=== PATIENT | male | born 2000 | race Hispanic/Latino ===

== ENCOUNTER 2024-07-25 13:12 | Inpatient (IN) | payer SELFPAY ==
[~2024-07-25] VITALS: Ht 172.7 cm; Wt 69.9 kg
[2024-07-25] VITALS (11 sets, daily range): BP systolic 91–114; BP diastolic 46–94; PULSE 62–93; RESP 16–20; TEMP 98.2; O2SAT 99–100
[2024-07-25 14:27] LABS: BASOPHILS % 0.4 % (0.0-1.0); EOSINOPHILS % 0.6 % (0.0-6.0); HEMATOCRIT 45.5 % (38.2-49.6); LYMPHOCYTES # (AUTO) 1.6 (1.0-3.2); LYMPHOCYTES % 30.5 % (18.0-39.1); MEAN CORPUSCULAR HEMOGLOBIN 30.5 pg (28-32); MEAN CORPUSCULAR HGB CONC 35.2 g/dL (31-35); MEAN CORPUSCULAR VOLUME 86.8 fL (81-99); MONOCYTES # (AUTO) 0.3 (0.2-0.8); MONOCYTES % 6.6 % (4.4-11.3); NEUTROPHILS # (AUTO) 3.2 (2.1-6.9); NEUTROPHILS % 60.9 % (38.7-80.0); PLATELET COUNT 167 x10e3/uL (140-360); RED BLOOD COUNT 5.24 x10e6/uL (4.3-5.7); RED CELL DISTRIBUTION WIDTH 13.1 % (11.7-14.4); WHITE BLOOD COUNT 5.18 x10e3/uL (4.8-10.8)
[2024-07-25] MEDS: SODIUM CHLORIDE 0.9% 1000ML 1,000 ML IV ONE ×2 (14:45)
[2024-07-25 14:56] LABS: ALBUMIN 3.9 g/dL (3.5-5.0); ALBUMIN/GLOBULIN RATIO 1.4 (0.8-2.0); ANION GAP 23.2 mmol/L (8-16); BILIRUBIN,TOTAL 0.3 mg/dL (0.2-1.2); CALCIUM 8.9 mg/dL (8.4-10.2); CREATININE, SERUM 1.13 mg/dL (0.72-1.25); POTASSIUM 4.2 mmol/L (3.5-5.1); TOTAL PROTEIN 6.6 g/dL (6.5-8.1)
[2024-07-25 16:45] LABS: CALCIUM 7.9 mg/dL (8.4-10.2); CREATININE, SERUM 1.02 mg/dL (0.72-1.25)
[2024-07-25] MEDS ORDERED: ONDANSETRON HCL INJ 2MG/ML 2ML 2 MG/ML VIAL IV PRN (17:00)
[2024-07-25] MEDS ORDERED: POTASSIUM CHLORIDE 20MEQ/100ML 200 ML IV PRN (17:00)
[2024-07-25] MEDS: SODIUM CHLORIDE 0.9% 1000ML 1,000 ML IV SCH (17:36)
[2024-07-25] MEDS: INSULIN REGULAR, HUMAN 3ML VL 100 UNIT in SODIUM CHLORIDE 0.9% 99 ML IV SCH (17:42)
[2024-07-25] MEDS: MUPIROCIN 2% OINT 22 GM TUBE TOP SCH (17:45)
[2024-07-25] MEDS: DEXTROSE 5%/0.45% SOD CHL 1,000 ML IV SCH (18:38)
[2024-07-25 22:08] LABS: ANION GAP 19.1 mmol/L (8-16); CALCIUM 7.6 mg/dL (8.4-10.2); CREATININE, SERUM 0.8 mg/dL (0.72-1.25); MAGNESIUM 1.6 MG/DL (1.3-2.1)
[2024-07-25 22:27] LABS: POTASSIUM 3.1 mmol/L (3.5-5.1)
[2024-07-25] MEDS ORDERED: MAGNESIUM/ALUMINUM/SIMETHICONE 30 ML UDC PO PRN (22:45)
[2024-07-25] MEDS ORDERED: DOCUSATE SODIUM 100 MG CAP PO PRN (22:45)
[2024-07-25] MEDS: MAGNESIUM SULF 1GRAM/DEXTROSE 100 ML IV PRN (22:45)
[2024-07-25] MEDS ORDERED: GUAIFENESIN/DEXTROMETHORPHAN LIQD 5 ML UDC PO PRN (22:45)
[2024-07-25] MEDS ORDERED: MELATONIN 3 MG TAB PO PRN (22:45)
[2024-07-25] MEDS ORDERED: HYDRALAZINE HCL 20 MG/ML VIAL IV PRN (22:45)
[2024-07-25] MEDS ORDERED: ACETAMINOPHEN 325 MG TAB PO PRN (22:45)
[2024-07-26] VITALS (26 sets, daily range): BP systolic 83–131; BP diastolic 41–113; PULSE 50–86; RESP 16–23; TEMP 98–98.9; O2SAT 99–100
[2024-07-26] MEDS: POTASSIUM CHLORIDE 20MEQ/100ML 100 ML IV PRN (00:43)
[2024-07-26 08:10] LABS: ANION GAP 14.9 mmol/L (8-16); CALCIUM 8.1 mg/dL (8.4-10.2); CREATININE, SERUM 0.73 mg/dL (0.72-1.25); MAGNESIUM 1.7 MG/DL (1.3-2.1)
[2024-07-26 08:21] LABS: POTASSIUM 2.9 mmol/L (3.5-5.1)
[2024-07-26 08:23] LABS: CHOL/HDL RATIO 6.5 (3.9-4.7)
[2024-07-26 08:43] LABS: THYROID STIMULATING HORMONE 0.595 uIU/mL (0.350-4.940)
[2024-07-26] MEDS ORDERED: DEXTROSE 50% SYRINGE 50 ML IV PRN ×2 (09:00→14:00)
[2024-07-26] MEDS: MULTIVITAMINS/MINERALS TAB PO SCH (09:29)
[2024-07-26] MEDS: MAGNESIUM SULF 1GRAM/DEXTROSE 100 ML IV PRN (09:30)
[2024-07-26] MEDS ORDERED: METOPROLOL TARTRATE INJ 1 MG/ML VIAL IV PRN (10:15)
[2024-07-26] MEDS ORDERED: ALBUTEROL/IPRATROPIUM 3 ML NEB NEB PRN (10:15)
[2024-07-26 13:39] LABS: ANION GAP 15.3 mmol/L (8-16); CALCIUM 8.7 mg/dL (8.4-10.2); CREATININE, SERUM 0.77 mg/dL (0.72-1.25); MAGNESIUM 1.6 MG/DL (1.3-2.1)
[2024-07-26 13:47] LABS: POTASSIUM 3.3 mmol/L (3.5-5.1)
[2024-07-26] MEDS ORDERED: INSULIN REGULAR, HUMAN 3ML VL 100 UNIT in SODIUM CHLORIDE 0.45% 100 ML 100 ML IV SCH (14:00)
[2024-07-26] MEDS ORDERED: INSULIN REGULAR, HUMAN 3ML VL 100 UNIT in SODIUM CHLORIDE 0.45% 100 ML 99 ML IV SCH (14:15)
[2024-07-26] MEDS: ENOXAPARIN SOD INJ 40 MG/0.4 ML SYR SC SCH (17:00)
[2024-07-26 18:24] LABS: BASOPHILS % 0.3 % (0.0-1.0); EOSINOPHILS % 0.5 % (0.0-6.0); HEMATOCRIT 40.9 % (38.2-49.6); HEMOGLOBIN 14.5 g/dL (14.0-18.0); LYMPHOCYTES # (AUTO) 2.5 (1.0-3.2); LYMPHOCYTES % 42.8 % (18.0-39.1); MEAN CORPUSCULAR HEMOGLOBIN 30.1 pg (28-32); MEAN CORPUSCULAR HGB CONC 35.5 g/dL (31-35); MEAN CORPUSCULAR VOLUME 84.9 fL (81-99); MONOCYTES # (AUTO) 0.5 (0.2-0.8); MONOCYTES % 8.2 % (4.4-11.3); NEUTROPHILS # (AUTO) 2.8 (2.1-6.9); NEUTROPHILS % 47.7 % (38.7-80.0); PLATELET COUNT 148 x10e3/uL (140-360); RED BLOOD COUNT 4.82 x10e6/uL (4.3-5.7); RED CELL DISTRIBUTION WIDTH 13.2 % (11.7-14.4); WHITE BLOOD COUNT 5.86 x10e3/uL (4.8-10.8)
[2024-07-26 18:42] LABS: ALBUMIN 3.4 g/dL (3.5-5.0); ALBUMIN/GLOBULIN RATIO 1.6 (0.8-2.0); ANION GAP 13.8 mmol/L (8-16); BILIRUBIN,TOTAL 0.4 mg/dL (0.2-1.2); CALCIUM 8.7 mg/dL (8.4-10.2); CREATININE, SERUM 0.75 mg/dL (0.72-1.25); MAGNESIUM 1.7 MG/DL (1.3-2.1); POTASSIUM 3.8 mmol/L (3.5-5.1); TOTAL PROTEIN 5.5 g/dL (6.5-8.1)
[2024-07-26] MEDS: FAMOTIDINE 20 MG TAB PO SCH (19:26)
[2024-07-26] MEDS: MAGNESIUM SULF 1GRAM/DEXTROSE 100 ML IV ONE (20:01)
[2024-07-26] MEDS: ATORVASTATIN 20 MG TAB PO SCH (20:22)
[2024-07-26] MEDS: INSULIN GLARGINE 100 UNITS/ML VIAL SQ SCH (20:23)
[2024-07-26] MEDS ORDERED: MELATONIN 3 MG TAB PO PRN (21:00)
[2024-07-27] VITALS (13 sets, daily range): BP systolic 92–108; BP diastolic 56–73; PULSE 47–87; RESP 13–20; TEMP 97.8–99.2; O2SAT 96–100
[2024-07-27 07:10] LABS: BASOPHILS % 0.2 % (0.0-1.0); EOSINOPHILS # (AUTO) 0.1 (0.0-0.4); EOSINOPHILS % 0.9 % (0.0-6.0); HEMATOCRIT 45.8 % (38.2-49.6); HEMOGLOBIN 15.7 g/dL (14.0-18.0); LYMPHOCYTES # (AUTO) 3.1 (1.0-3.2); LYMPHOCYTES % 56.5 % (18.0-39.1); MEAN CORPUSCULAR HEMOGLOBIN 29.9 pg (28-32); MEAN CORPUSCULAR HGB CONC 34.3 g/dL (31-35); MEAN CORPUSCULAR VOLUME 87.2 fL (81-99); MONOCYTES # (AUTO) 0.5 (0.2-0.8); MONOCYTES % 8.2 % (4.4-11.3); NEUTROPHILS # (AUTO) 1.9 (2.1-6.9); PLATELET COUNT 153 x10e3/uL (140-360); RED BLOOD COUNT 5.25 x10e6/uL (4.3-5.7); RED CELL DISTRIBUTION WIDTH 13.2 % (11.7-14.4); WHITE BLOOD COUNT 5.47 x10e3/uL (4.8-10.8)
[2024-07-27 07:53] LABS: CALCIUM 8.7 mg/dL (8.4-10.2); CREATININE, SERUM 0.72 mg/dL (0.72-1.25)
[2024-07-27] MEDS: POTASSIUM CHLORIDE 20 MEQ TAB CR PO PRN (08:38)
[2024-07-27] MEDS: ASPIRIN 81 MG ENTERIC COATED PO SCH (08:38)
[2024-07-27] MEDS: DEXTROSE 5%/0.45% SOD CHL 1,000 ML IV SCH (10:15)
[2024-07-27] MEDS: INSULIN REGULAR, HUMAN 3ML VL 100 UNIT in SODIUM CHLORIDE 0.9% 99 ML IV SCH (12:55)
[2024-07-27] MEDS: INSULIN LISPRO 100 UNIT/1 ML 3ML VIAL SQ ONE (14:48)
[2024-07-27] MEDS: INSULIN LISPRO 100 UNIT/1 ML 3ML VIAL SQ SCH ×2 (16:30→16:59)
[2024-07-27] MEDS ORDERED: INSULIN GLARGINE 100 UNITS/ML VIAL SQ SCH (21:00)
[2024-07-27] MEDS ORDERED: ATORVASTATIN CA20 MG PO (21:03)
[2024-07-27] MEDS ORDERED: FAMOTIDINE20 MG PO (21:03)
== END 2024-07-27 20:50 | disposition home or self-care (01) | DRG 639 ==
LOC: ER 13:56 → ERHOLD 16:59 → ICU 20:43
PROVIDERS: ADMIT Internal Medicine; ATTEND Internal Medicine
DX: E11.10 Type 2 diabetes mellitus with ketoacidosis without coma (principal); E78.5 Hyperlipidemia, unspecified; E86.0 Dehydration; E11.649 Type 2 diabetes mellitus with hypoglycemia without coma; R53.81 Other malaise; T38.3X6A Underdosing of insulin and oral hypoglycemic [antidiabetic] drugs, initial encounter; Z91.128 Patient's intentional underdosing of medication regimen for other reason
CPT/HCPCS: 36415; 80048; 80053; 80061; 82550; 82948; 83036; 83735; 84443; 85025; 94799; 99252; 99284; J1650; J1815; J3475; J3480; J7030; J7050